=== PATIENT | female | born 1960 | race American Indian/Alaskan Native ===

== ENCOUNTER 2018-06-07 08:30 | Inpatient (IN) | payer MEDICARE, MEDICAID ==
[2018-06-07 08:34] VITALS: BMI 35.3
--- NOTE | 2018-06-07 09:04 | C.PDOC ---
History Of Present Illness 58 y/o female pt with hx of dementia and HTN presents to the ER c/o palpitations today. Pt is from senior care and is currently wearing a heart monitor for her fast heart rate for x2 weeks. Pt goes to dialysis M, W, F. PMD is Dr. Renan Heller. Pt denies chest pain, SOB, DM, sore throat, cough, and fever. Time Seen by Provider: 06/07/18 08:46 Chief Complaint (Nursing): Shortness Of Breath History Per: Patient History/Exam Limitations: no limitations Onset/Duration Of Symptoms: Days (x2 weeks) Current Symptoms Are (Timing): Still Present Past Medical History Reviewed: Historical Data, Nursing Documentation, Vital Signs Vital Signs: Last Vital Signs Temp 99.2 F 06/07/18 08:35 Pulse 90 06/07/18 08:35 Resp 26 H 06/07/18 08:35 BP 114/72 06/07/18 08:35 Pulse Ox 100 06/07/18 08:35 - Medical History PMH: Dementia, HTN, Hypercholesterolemia, Chronic Kidney Disease ("UNSPECIFIED KIDNEY FAILURE") Comment Only: Seizures ("UNSPECIFIED CONVULSIONS") Family History: States: No Known Family Hx - Social History Hx Alcohol Use: No Hx Substance Use: No - Immunization History Hx Tetanus Toxoid Vaccination: No Hx Influenza Vaccination: No Hx Pneumococcal Vaccination: No Review Of Systems Except As Marked, All Systems Reviewed And Found Negative. Constitutional: Negative for: Fever, Other (DM) ENT: Negative for: Throat Pain Cardiovascular: Positive for: Palpitations. Negative for: Chest Pain Respiratory: Negative for: Cough, Shortness of Breath Physical Exam - Physical Exam Appears: Non-toxic, No Acute Distress Skin: Warm, Dry Head: Normacephalic Chest: Symmetrical, No Deformity Cardiovascular: Rhythm Regular Respiratory: Normal Breath Sounds Extremity: Other (minimal venous stasis changes b/l) Pulses: Left Dorsalis Pedis: Normal, Right Dorsalis Pedis: Normal Neurological/Psych: Oriented x3, Normal Speech ED Course And Treatment - Laboratory Results Result Diagrams: 06/07/18 09:10 06/07/18 09:10 O2 Sat by Pulse Oximetry: 100 (RA) Pulse Ox Interpretation: Normal Medical Decision Making Medical Decision Making: Impression: palpitations Plans: -- EKG -- chem labs -- blood work -- CXR -- UA 10:39 Dr. Renan Heller agrees to admittance of pt. Reassess: Pt is resting comfortably. Patient has no risk factors for pulmonary emboli or DVT. Clinical presentation is not suggestive of aortic dissection. Pt will be admitted under Dr. Renan Heller. Disposition - Disposition Forms: [employer] (Urdu) - Scribe Statement The provider has reviewed the documentation as recorded by the Scribe Clayton Do Provider Attestation: All medical record entries made by the Scribe were at my direction and personally dictated by me. I have reviewed the chart and agree that the record accurately reflects my personal performance of the history, physical exam, medical decision making, and the department course for this patient. I have also personally directed, reviewed, and agree with the discharge instructions and disposition.
[2018-06-07 09:15] LABS: BASO # 0.2 K/uL (0.0-0.2); BASO % 1.1 % (0.0-2.0); EOS # 0.1 K/uL (0.0-0.7); EOS % 0.6 % (0.0-4.0); HEMOGLOBIN 10.8 g/dL (11.0-16.0); LYMPH # 0.7 K/uL (1.0-4.3); MEAN CELL VOLUME 101.7 fL (81.0-99.0); MEAN CORPUSCULAR HEMOGLOBIN 33.5 pg (27.0-31.0); MEAN PLATELET VOLUME 8.4 fL (7.2-11.7); MONO # 1.2 K/uL (0.0-0.8); MONO % 6.7 % (0.0-10.0); NEUT # 15.6 K/uL (1.8-7.0); NEUT % 87.6 % (50.0-75.0); PLATELET COUNT 285 K/uL (130-400); RBC 3.22 Mil/uL (3.80-5.20); RED CELL DISTRIBUTION WIDTH 16.2 % (11.5-14.5); WHITE BLOOD COUNT 17.8 K/uL (4.8-10.8)
[2018-06-07 09:27] LABS: ALBUMIN 3.9 g/dL (3.5-5.0); CALCIUM 9.7 mg/dl (8.6-10.4); INR 2.6; PROTHROMBIN TIME 28.8 SECONDS (9.7-12.2)
[2018-06-07] MEDS ORDERED: Azithromycin 500 MG in Sodium Chloride 0.9% 250 ML IVPB STA (10:07)
[2018-06-07 10:14] LABS: TROPONIN I 0.125 ng/mL (0.00-0.120)
[2018-06-07] MEDS ORDERED: cefTRIAXone 1 gm 1 GM/100 ML BAG IVPB ONE (10:27)
[2018-06-07] MEDS ORDERED: Azithromycin 500mg/250ML NS 500 MG/250 ML BAG IVPB ONE (10:27)
[2018-06-07 10:33] LABS: LYMPHOCYTE 4 % (20-40); MONOCYTE 1 % (0-10); NEUTROPHIL 95 % (50-75); TOTAL CELLS COUNTED 100
[2018-06-07 10:34] LABS: ANISOCYTOSIS SLIGHT; HYPOCHROMIC SLIGHT; PLATELET ESTIMATE NORMAL (NORMAL); POLYCHROMIC SLIGHT
[2018-06-07 10:35] LABS: SQUAMOUS EPITHIAL < 1 /hpf (0-5); URINE AMORPHOUS SEDIMENT OCC /ul (<OCC); URINE BACTERIA MANY (<OCC); URINE BILIRUBIN NEGATIVE (NEGATIVE); URINE BLOOD 1+ (NEGATIVE); URINE COLOR Amber (YELLOW); URINE GLUCOSE (UA) NORMAL (Normal); URINE LEUKOCYTE ESTERASE 2+ Leu/uL (Negative); URINE PROTEIN 3+ mg/dL (NEGATIVE)
[2018-06-07 10:36] LABS: URINE CLARITY SLHAZY (Clear)
[2018-06-07] MEDS ORDERED: Potassium Chloride 20 mEq/15 ml LIQ UD ONE (10:37)
[2018-06-07] MEDS ORDERED: Potassium Chloride 20 mEq/15 ml LIQ UD PO ONE (10:45)
--- NOTE | 2018-06-07 12:59 | RAD ---
Date of service: 06/07/2018 PROCEDURE: CHEST RADIOGRAPH, 1 VIEW HISTORY: chest pain COMPARISON: Comparison is made with 07/11/2011 FINDINGS: LUNGS: Diffuse hazy opacities in the lungs noted suggestive of pulmonary edema/severe congestion. PLEURA: Right pleural effusion is noted. CARDIOVASCULAR: The cardiac silhouette is enlarged. Small atherosclerotic calcifications seen in the aortic knob OSSEOUS STRUCTURES: No significant abnormalities. VISUALIZED UPPER ABDOMEN: Normal. OTHER FINDINGS: None. IMPRESSION: Cardiomegaly and diffuse hazy opacity in the lungs suspicious for pulmonary edema or severe congestion.
[2018-06-07] MEDS ORDERED: Dextrose 50% SYRINGE Inj (50 ml) IV PRN (16:20)
[2018-06-07] MEDS ORDERED: Glucagon Recombinant 1 mg Inj IM PRN (16:20)
[2018-06-07] MEDS: (Novolog) Insulin Aspart, Recombinant 100 u/ml 10 ml vial SC SCH ×2 (17:00→21:25)
[2018-06-07] MEDS: MethylPREDNISolone 40 mg Vial IVP SCH (21:24)
--- NOTE | 2018-06-07 21:40 | CP.PCM.HP ---
Past Patient History - Past Medical History & Family History Past Medical History?: Yes - Past Social History Smoking Status: Never Smoked - CARDIAC Hx Hypercholesterolemia: Yes Hx Hypertension: Yes - PULMONARY Hx Respiratory Disorders: No - NEUROLOGICAL Hx Dementia: Yes Hx Seizures: ("UNSPECIFIED CONVULSIONS") - HEENT Hx HEENT Problems: Yes Hx Cataracts: Yes - RENAL Hx Chronic Kidney Disease: Yes ("UNSPECIFIED KIDNEY FAILURE") - ENDOCRINE/METABOLIC Hx Endocrine Disorders: Yes Hx Diabetes Mellitus Type 2: Yes ("DM TYPE 2 WITHOUT COMPLICATIONS") - MUSCULOSKELETAL/RHEUMATOLOGICAL Hx Falls: No - GASTROINTESTINAL Hx Gastrointestinal Disorders: Yes Hx Gastroesophageal Reflux: Yes - PSYCHIATRIC Hx Substance Use: Yes - SURGICAL HISTORY Hx Surgeries: Yes Hx Vascular Access Device: Yes (AV FISTULAR LEFT ARM) - ANESTHESIA Hx Anesthesia: Yes Hx Anesthesia Reactions: No Meds Allergies/Adverse Reactions: Allergies Allergy/AdvReac Type Severity Reaction Status Date / Time No Known Allergies Allergy Verified 11/11/15 06:51 Physical Exam - Constitutional Appears: Well - Head Exam Head Exam: ATRAUMATIC, NORMAL INSPECTION, NORMOCEPHALIC - Eye Exam Eye Exam: EOMI, Normal appearance, PERRL Pupil Exam: NORMAL ACCOMODATION, PERRL - ENT Exam ENT Exam: Mucous Membranes Moist, Normal Exam - Neck Exam Neck exam: Positive for: Normal Inspection - Respiratory Exam Respiratory Exam: Decreased Breath Sounds - Cardiovascular Exam Cardiovascular Exam: REGULAR RHYTHM, +S1, +S2 - GI/Abdominal Exam GI & Abdominal Exam: Diminished Bowel Sounds, Soft - Rectal Exam Rectal Exam: Deferred Results - Vital Signs Recent Vital Signs: Last Vital Signs Temp 98.0 F 06/07/18 15:23 Pulse 79 06/07/18 15:23 Resp 20 06/07/18 15:23 BP 118/83 06/07/18 17:42 Pulse Ox 100 06/07/18 15:23 - Labs Result Diagrams: 06/07/18 09:10 06/07/18 09:10 Labs: Laboratory Results - last 24 hr 06/07/18 06/07/18 06/07/18 08:38 09:10 09:10 WBC 17.8 H RBC 3.22 L Hgb 10.8 L Hct 32.7 L MCV 101.7 H MCH 33.5 H MCHC 33.0 RDW 16.2 H Plt Count 285 MPV 8.4 Neut % (Auto) 87.6 H Lymph % (Auto) 4.0 L Walton % (Auto) 6.7 Eos % (Auto) 0.6 Baso % (Auto) 1.1 Neut # (Auto) 15.6 H Lymph # (Auto) 0.7 L Walton # (Auto) 1.2 H Eos # (Auto) 0.1 Baso # (Auto) 0.2 Neutrophils % (Manual) 95 H Lymphocytes % (Manual) 4 L Monocytes % (Manual) 1 Platelet Estimate Normal Polychromasia Slight Hypochromasia (manual) Slight Anisocytosis (manual) Slight PT 28.8 H INR 2.6 APTT 52 H Sodium Potassium Chloride Carbon Dioxide Anion Gap BUN Creatinine Est GFR ( Amer) Est GFR (Non-Af Amer) POC Glucose (mg/dL) 111 H Random Glucose Calcium Total Bilirubin AST ALT Alkaline Phosphatase Troponin I NT-Pro-B Natriuret Pep Total Protein Albumin Globulin Albumin/Globulin Ratio Urine Color Urine Clarity Urine pH Ur Specific Payne Urine Protein Urine Glucose (UA) Urine Ketones Urine Blood Urine Nitrate Urine Bilirubin Urine Urobilinogen Ur Leukocyte Esterase Urine WBC (Auto) Urine RBC (Auto) Ur Squamous Epith Cells Amorphous Sediment Urine Bacteria 06/07/18 06/07/18 06/07/18 09:10 10:20 16:52 WBC RBC Hgb Hct MCV MCH MCHC RDW Plt Count MPV Neut % (Auto) Lymph % (Auto) Walton % (Auto) Eos % (Auto) Baso % (Auto) Neut # (Auto) Lymph # (Auto) Walton # (Auto) Eos # (Auto) Baso # (Auto) Neutrophils % (Manual) Lymphocytes % (Manual) Monocytes % (Manual) Platelet Estimate Polychromasia Hypochromasia (manual) Anisocytosis (manual) PT INR APTT Sodium 140 Potassium 3.4 L Chloride 96 L Carbon Dioxide 32 H Anion Gap 15 BUN 37 H Creatinine 3.8 H Est GFR ( Amer) 15 Est GFR (Non-Af Amer) 12 POC Glucose (mg/dL) 108 Random Glucose 117 H Calcium 9.7 Total Bilirubin 2.6 H AST 23 ALT 13 Alkaline Phosphatase 110 Troponin I 0.1250 H* NT-Pro-B Natriuret Pep 18004 H Total Protein 7.9 Albumin 3.9 Globulin 4.0 H Albumin/Globulin Ratio 1.0 Urine Color [place] Urine Clarity [place] Urine pH 8.0 Ur Specific Payne 1.013 Urine Protein 3+ H Urine Glucose (UA) Normal Urine Ketones Negative Urine Blood 1+ H Urine Nitrate Negative Urine Bilirubin Negative Urine Urobilinogen 2.0 H Ur Leukocyte Esterase 2+ H Urine WBC (Auto) 17 H Urine RBC (Auto) 8 H Ur Squamous Epith Cells < 1 Amorphous Sediment Occ H Urine Bacteria Many H
[2018-06-08] MEDS: Albuterol-Ipratrop 3 mg / 0.5 (3 ml) UD INH SCH ×4 (01:25→19:53)
[2018-06-08] MEDS: MethylPREDNISolone 40 mg Vial IVP SCH ×3 (06:29→21:53)
[2018-06-08] MEDS: Pantoprazole 40 mg EC Tab PO SCH (09:23)
[2018-06-08] MEDS: (Novolog) Insulin Aspart, Recombinant 100 u/ml 10 ml vial SC SCH ×4 (09:24→21:51)
[2018-06-08] MEDS ORDERED: Potassium Chloride 20 mEq/15 ml LIQ UD PO ONE (10:16)
[2018-06-08] MEDS: Azithromycin 500 MG in Sodium Chloride 0.9% 250 ML IVPB SCH (10:40)
[2018-06-08] MEDS: cefTRIAXone IV 1 gm in Dextros 50 ML IVPB SCH (14:50)
--- NOTE | 2018-06-08 17:27 | CP.PCM.PN ---
Subjective - Date & Time of Evaluation Date of Evaluation: 06/08/18 Time of Evaluation: 10:30 - Subjective Subjective: clinically same Objective - Vital Signs/Intake and Output Vital Signs (last 24 hours): Temp Pulse Resp BP Pulse Ox 98.0 F 68 20 127/82 99 06/08/18 16:38 06/08/18 16:38 06/08/18 16:38 06/08/18 16:38 06/08/18 16:38 - Medications Medications: Current Medications Albuterol/Ipratropium (Duoneb 3 Mg/0.5 Mg (3 Ml) Ud) 3 ml INH RQ6 [facility] Last Admin: 06/08/18 13:47 Dose: Not Given Amiodarone HCl (Cordarone) 200 mg PO DAILY [facility] Last Admin: 06/08/18 09:22 Dose: 200 mg Apixaban (Eliquis) 2.5 mg PO BID [facility] Last Admin: 06/08/18 09:23 Dose: 2.5 mg Aspirin (Aspirin Chewable) 81 mg PO DAILY [facility] Last Admin: 06/08/18 09:23 Dose: 81 mg Dextrose (Dextrose 50% Inj) 0 ml IV STAT PRN; Protocol PRN Reason: Hypoglycemia Protocol Dextrose (Glutose 15) 0 gm PO ONCE PRN; Protocol PRN Reason: Hypoglycemia Protocol Glucagon (Glucagen Diagnostic Kit) 0 mg IM STAT PRN; Protocol PRN Reason: Hypoglycemia Protocol Azithromycin 500 mg/ Sodium (Chloride) 250 mls @ 250 mls/hr IVPB DAILY [facility] Last Admin: 06/08/18 10:40 Dose: 250 mls/hr Ceftriaxone Sodium (Rocephin Iv 1 Gm Duplex) 50 mls @ 100 mls/hr IVPB DAILY [facility]; Protocol Last Admin: 06/08/18 14:50 Dose: 100 mls/hr Dextrose (Dextrose 5% In Water 1000 Ml) 1,000 mls @ 0 mls/hr IV .Q0M PRN; Protocol PRN Reason: Hypoglycemia Protocol Insulin Aspart (Novolog) 0 unit SC ACHS [facility]; Protocol Last Admin: 06/08/18 17:22 Dose: Not Given Levetiracetam (Keppra) 250 mg PO BID [facility] Last Admin: 06/08/18 09:23 Dose: 250 mg Lisinopril (Zestril) 5 mg PO DAILY [facility] Last Admin: 06/08/18 09:23 Dose: 5 mg Methylprednisolone (Solu-Medrol) 40 mg IVP Q8 [facility] Last Admin: 06/08/18 14:50 Dose: 40 mg Metoprolol Tartrate (Lopressor) 25 mg PO BID [facility] Last Admin: 06/08/18 09:23 Dose: 25 mg Pantoprazole Sodium (Protonix Ec Tab) 40 mg PO DAILY [facility] Last Admin: 06/08/18 09:23 Dose: 40 mg Rosuvastatin Calcium (Crestor) 20 mg PO HS [facility] Last Admin: 06/07/18 21:24 Dose: 20 mg - Labs Labs: 06/07/18 09:10 06/07/18 09:10 PT 28.8 SECONDS (9.7-12.2) H 06/07/18 09:10 INR 2.6 06/07/18 09:10 APTT 52 SECONDS (21-34) H 06/07/18 09:10
--- NOTE | 2018-06-08 19:21 | CP.PCM.CON ---
History of Present Illness - History of Present Illness History of Present Illness: patient seen and examined consult dictated Hx esrd,[facility] resident admitted via er for chest pain palpitations to schedule dialysis in AM Obtained phone consent from sister await cardiology evaluation Past Patient History - Past Medical History & Family History Past Medical History?: Yes - Past Social History Smoking Status: Never Smoked - CARDIAC Hx Hypercholesterolemia: Yes Hx Hypertension: Yes - PULMONARY Hx Respiratory Disorders: No - NEUROLOGICAL Hx Dementia: Yes Hx Seizures: ("UNSPECIFIED CONVULSIONS") - HEENT Hx HEENT Problems: Yes Hx Cataracts: Yes - RENAL Hx Chronic Kidney Disease: Yes ("UNSPECIFIED KIDNEY FAILURE") - ENDOCRINE/METABOLIC Hx Endocrine Disorders: Yes Hx Diabetes Mellitus Type 2: Yes ("DM TYPE 2 WITHOUT COMPLICATIONS") - MUSCULOSKELETAL/RHEUMATOLOGICAL Hx Falls: No - GASTROINTESTINAL Hx Gastrointestinal Disorders: Yes Hx Gastroesophageal Reflux: Yes - PSYCHIATRIC Hx Substance Use: Yes - SURGICAL HISTORY Hx Surgeries: Yes Hx Vascular Access Device: Yes (AV FISTULAR LEFT ARM) - ANESTHESIA Hx Anesthesia: Yes Hx Anesthesia Reactions: No Meds Allergies/Adverse Reactions: Allergies Allergy/AdvReac Type Severity Reaction Status Date / Time No Known Allergies Allergy Verified 11/11/15 06:51 - Medications Medications: Current Medications Albuterol/Ipratropium (Duoneb 3 Mg/0.5 Mg (3 Ml) Ud) 3 ml INH RQ6 [facility] Last Admin: 06/08/18 13:47 Dose: Not Given Amiodarone HCl (Cordarone) 200 mg PO DAILY [facility] Last Admin: 06/08/18 09:22 Dose: 200 mg Apixaban (Eliquis) 2.5 mg PO BID [facility] Last Admin: 06/08/18 17:44 Dose: 2.5 mg Aspirin (Aspirin Chewable) 81 mg PO DAILY [facility] Last Admin: 06/08/18 09:23 Dose: 81 mg Dextrose (Dextrose 50% Inj) 0 ml IV STAT PRN; Protocol PRN Reason: Hypoglycemia Protocol Dextrose (Glutose 15) 0 gm PO ONCE PRN; Protocol PRN Reason: Hypoglycemia Protocol Glucagon (Glucagen Diagnostic Kit) 0 mg IM STAT PRN; Protocol PRN Reason: Hypoglycemia Protocol Azithromycin 500 mg/ Sodium (Chloride) 250 mls @ 250 mls/hr IVPB DAILY [facility] Last Admin: 06/08/18 10:40 Dose: 250 mls/hr Ceftriaxone Sodium (Rocephin Iv 1 Gm Duplex) 50 mls @ 100 mls/hr IVPB DAILY [facility]; Protocol Last Admin: 06/08/18 14:50 Dose: 100 mls/hr Dextrose (Dextrose 5% In Water 1000 Ml) 1,000 mls @ 0 mls/hr IV .Q0M PRN; Protocol PRN Reason: Hypoglycemia Protocol Insulin Aspart (Novolog) 0 unit SC ACHS [facility]; Protocol Last Admin: 06/08/18 17:22 Dose: Not Given Levetiracetam (Keppra) 250 mg PO BID [facility] Last Admin: 06/08/18 17:44 Dose: 250 mg Lisinopril (Zestril) 5 mg PO DAILY [facility] Last Admin: 06/08/18 09:23 Dose: 5 mg Methylprednisolone (Solu-Medrol) 40 mg IVP Q8 [facility] Last Admin: 06/08/18 14:50 Dose: 40 mg Metoprolol Tartrate (Lopressor) 25 mg PO BID [facility] Last Admin: 06/08/18 17:44 Dose: 25 mg Pantoprazole Sodium (Protonix Ec Tab) 40 mg PO DAILY [facility] Last Admin: 06/08/18 09:23 Dose: 40 mg Rosuvastatin Calcium (Crestor) 20 mg PO HS [facility] Last Admin: 06/07/18 21:24 Dose: 20 mg Results - Vital Signs Recent Vital Signs: Last Vital Signs Temp 98.0 F 06/08/18 16:38 Pulse 68 06/08/18 16:38 Resp 20 06/08/18 16:38 BP 127/82 06/08/18 17:44 Pulse Ox 99 06/08/18 16:38 - Labs Result Diagrams: 06/07/18 09:10 06/07/18 09:10 Labs: Laboratory Results - last 24 hr 06/07/18 06/08/18 06/08/18 21:25 06:26 11:52 POC Glucose (mg/dL) 105 125 H 161 H 06/08/18 17:07 POC Glucose (mg/dL) 142 H Assessment & Plan (1) ESRD (end stage renal disease) on dialysis Status: Acute (2) CHF (congestive heart failure) Status: Acute (3) Chest pain Status: Acute (4) Dementia Status: Acute (5) Seizure disorder Status: Acute
[2018-06-09] MEDS: Albuterol-Ipratrop 3 mg / 0.5 (3 ml) UD INH SCH ×4 (02:48→20:24)
--- NOTE | 2018-06-09 03:00 | CON ---
DATE: 06/08/2018 ATTENDING PHYSICIAN: Megan Heller HISTORY OF PRESENT ILLNESS: Ms. Campbell is a 58-year-old black lady who is being seen for management of dialysis dependent renal failure. Ms. Campbell has a history of hypertension on dialysis Saturday, Saturday, Saturday. She suffers from dementia and is presently in a alf. She apparently had a heart monitor placed on her approximately 2 weeks ago. She was brought to the emergency room because of chest pain and palpitations. On the , her sodium was 140, potassium 3.4, chloride 96, CO2 of 32, BUN 37, creatinine 3.8, calcium 9.7, total bilirubin 2.6, AST 23, ALT of 13 alk phos of 110, troponin 1.1250, ProBNP of 58,300, total protein 7.9, albumin 3.9, globulin 4, white count 17,800, hemoglobin 10.8, hematocrit 32.7, and platelet count 285,000. Chest x-ray showed cardiomegaly and diffuse hazy opacity in the lung suspicious for pulmonary edema or severe congestion. PAST HISTORY: Please see the above, also a history of seizures. She has been admitted to [facility] in the past. MEDICATIONS: Include albuterol, amiodarone, Eliquis, aspirin, insulin, Keppra, lisinopril, Lopressor, Protonix and Crestor. She also is on methylprednisolone in the hospital. FAMILY HISTORY: She does not remember. SOCIAL HISTORY: She denied using cigarettes, drugs or alcohol. REVIEW OF SYSTEMS: At present she denies headache, chest pain, shortness of breath, palpitations, abdominal pain, nausea or vomiting. She does not remember when she made urine last. PHYSICAL EXAM: GENERAL: She was awake and alert, in no acute distress, watching television. VITAL SIGNS: Her temperature was 98. Her pulse was 68. Her blood pressure was 127/82. She was wearing a heart monitor. NECK: There was no jugular venous distension at 80-90 degrees. CHEST: Her lungs were clear. HEART: The heart rhythm was regular. ABDOMEN: Soft and nontender. The was no definite hepatomegaly. EXTREMITIES: She moves all her extremities on command. An access was patent in her left arm. IMPRESSION: End-stage renal disease dialysis dependent, hypertensive nephrosclerosis, dementia, seizure disorder, hypertension. RECOMMENDATIONS: We will schedule hemodialysis in the a.m. Await further cardiology evaluation. Thank you for your kind referral. We will continue to follow with you. Sincerely, Eddie Johnson MD
[2018-06-09] MEDS: MethylPREDNISolone 40 mg Vial IVP SCH ×3 (05:44→21:19)
[2018-06-09] MEDS: (Novolog) Insulin Aspart, Recombinant 100 u/ml 10 ml vial SC SCH ×4 (08:26→21:42)
[2018-06-09] MEDS: Azithromycin 500 MG in Sodium Chloride 0.9% 250 ML IVPB SCH (10:16)
[2018-06-09] MEDS: Pantoprazole 40 mg EC Tab PO SCH (10:17)
[2018-06-09] MEDS: cefTRIAXone IV 1 gm in Dextros 50 ML IVPB SCH (11:34)
--- NOTE | 2018-06-09 12:46 | CP.PCM.PN ---
Subjective - Date & Time of Evaluation Date of Evaluation: 06/09/18 Time of Evaluation: 12:44 - Subjective Subjective: no more CPs CXR with CHF changes for dialysis now Will need adequate UF BP has been low Objective - Vital Signs/Intake and Output Vital Signs (last 24 hours): Temp Pulse Resp BP Pulse Ox 97.3 F L 68 18 102/72 95 06/09/18 07:00 06/09/18 07:00 06/09/18 07:00 06/09/18 10:17 06/09/18 07:00 - Medications Medications: Current Medications Albuterol/Ipratropium (Duoneb 3 Mg/0.5 Mg (3 Ml) Ud) 3 ml INH RQ6 [facility] Last Admin: 06/09/18 07:47 Dose: 3 ml Amiodarone HCl (Cordarone) 200 mg PO DAILY [facility] Last Admin: 06/09/18 10:17 Dose: 200 mg Apixaban (Eliquis) 2.5 mg PO BID [facility] Last Admin: 06/09/18 10:17 Dose: 2.5 mg Aspirin (Aspirin Chewable) 81 mg PO DAILY [facility] Last Admin: 06/09/18 10:17 Dose: 81 mg Dextrose (Dextrose 50% Inj) 0 ml IV STAT PRN; Protocol PRN Reason: Hypoglycemia Protocol Dextrose (Glutose 15) 0 gm PO ONCE PRN; Protocol PRN Reason: Hypoglycemia Protocol Glucagon (Glucagen Diagnostic Kit) 0 mg IM STAT PRN; Protocol PRN Reason: Hypoglycemia Protocol Azithromycin 500 mg/ Sodium (Chloride) 250 mls @ 250 mls/hr IVPB DAILY [facility] Last Admin: 06/09/18 10:16 Dose: 250 mls/hr Ceftriaxone Sodium (Rocephin Iv 1 Gm Duplex) 50 mls @ 100 mls/hr IVPB DAILY [facility]; Protocol Last Admin: 06/09/18 11:34 Dose: 100 mls/hr Dextrose (Dextrose 5% In Water 1000 Ml) 1,000 mls @ 0 mls/hr IV .Q0M PRN; Protocol PRN Reason: Hypoglycemia Protocol Insulin Aspart (Novolog) 0 unit SC ACHS [facility]; Protocol Last Admin: 06/09/18 12:17 Dose: 1 unit Levetiracetam (Keppra) 250 mg PO BID [facility] Last Admin: 06/09/18 10:17 Dose: 250 mg Lisinopril (Zestril) 5 mg PO DAILY [facility] Last Admin: 06/09/18 10:17 Dose: 5 mg Methylprednisolone (Solu-Medrol) 40 mg IVP Q8 [facility] Last Admin: 06/09/18 05:44 Dose: 40 mg Metoprolol Tartrate (Lopressor) 25 mg PO BID [facility] Last Admin: 06/09/18 10:17 Dose: 25 mg Pantoprazole Sodium (Protonix Ec Tab) 40 mg PO DAILY [facility] Last Admin: 06/09/18 10:17 Dose: 40 mg Rosuvastatin Calcium (Crestor) 20 mg PO HS [facility] Last Admin: 06/08/18 21:50 Dose: 20 mg - Labs Labs: 06/07/18 09:10 06/07/18 09:10 PT 28.8 SECONDS (9.7-12.2) H 06/07/18 09:10 INR 2.6 06/07/18 09:10 APTT 52 SECONDS (21-34) H 06/07/18 09:10 - Constitutional Appears: No Acute Distress, Confused, Chronically Ill - Head Exam Head Exam: ATRAUMATIC, NORMAL INSPECTION - Eye Exam Eye Exam: EOMI, Normal appearance - Neck Exam Neck Exam: Normal Inspection. absent: Tenderness - Respiratory Exam Respiratory Exam: Clear to Ausculation Bilateral, NORMAL BREATHING PATTERN - Cardiovascular Exam Cardiovascular Exam: REGULAR RHYTHM, +S1 - GI/Abdominal Exam GI & Abdominal Exam: Soft. absent: Tenderness - Extremities Exam Extremities Exam: Normal Inspection. absent: Tenderness - Neurological Exam Neurological Exam: Awake, CN II-XII Intact - Skin Skin Exam: Dry, Warm Assessment and Plan (1) Type 2 diabetes mellitus with diabetic nephropathy Status: Acute (2) CHF (congestive heart failure) Status: Acute (3) Dementia Status: Acute (4) ESRD (end stage renal disease) on dialysis Status: Acute (5) Seizure disorder Status: Acute - Assessment and Plan (Free Text) Plan: dialysis now with adequate UF hold DEVIN I as BP low monitor CPs follow up labs
--- NOTE | 2018-06-09 17:04 | CARD ---
APPROVED REPORT Date of service: 06/07/2018 EKG Measurement Heart [id number] <Conclusion> Normal sinus rhythm Possible Left atrial enlargement Right bundle branch block Abnormal ECG
[2018-06-09 17:30] VITALS: RESP 20
--- NOTE | 2018-06-09 19:09 | CP.PCM.PN ---
Subjective - Date & Time of Evaluation Date of Evaluation: 06/09/18 Time of Evaluation: 11:15 - Subjective Subjective: clinically same Objective - Vital Signs/Intake and Output Vital Signs (last 24 hours): Temp Pulse Resp BP Pulse Ox 98.1 F 79 20 108/73 95 06/09/18 18:23 06/09/18 18:55 06/09/18 18:23 06/09/18 18:23 06/09/18 18:23 - Medications Medications: Current Medications Albuterol/Ipratropium (Duoneb 3 Mg/0.5 Mg (3 Ml) Ud) 3 ml INH RQ6 [facility] Last Admin: 06/09/18 13:44 Dose: 3 ml Amiodarone HCl (Cordarone) 200 mg PO DAILY [facility] Last Admin: 06/09/18 10:17 Dose: 200 mg Apixaban (Eliquis) 2.5 mg PO BID [facility] Last Admin: 06/09/18 19:07 Dose: 2.5 mg Aspirin (Aspirin Chewable) 81 mg PO DAILY [facility] Last Admin: 06/09/18 10:17 Dose: 81 mg Dextrose (Dextrose 50% Inj) 0 ml IV STAT PRN; Protocol PRN Reason: Hypoglycemia Protocol Dextrose (Glutose 15) 0 gm PO ONCE PRN; Protocol PRN Reason: Hypoglycemia Protocol Glucagon (Glucagen Diagnostic Kit) 0 mg IM STAT PRN; Protocol PRN Reason: Hypoglycemia Protocol Azithromycin 500 mg/ Sodium (Chloride) 250 mls @ 250 mls/hr IVPB DAILY [facility] Last Admin: 06/09/18 10:16 Dose: 250 mls/hr Ceftriaxone Sodium (Rocephin Iv 1 Gm Duplex) 50 mls @ 100 mls/hr IVPB DAILY [facility]; Protocol Last Admin: 06/09/18 11:34 Dose: 100 mls/hr Dextrose (Dextrose 5% In Water 1000 Ml) 1,000 mls @ 0 mls/hr IV .Q0M PRN; Protocol PRN Reason: Hypoglycemia Protocol Insulin Aspart (Novolog) 0 unit SC ACHS [facility]; Protocol Last Admin: 06/09/18 12:17 Dose: 1 unit Levetiracetam (Keppra) 250 mg PO BID [facility] Last Admin: 06/09/18 19:07 Dose: 250 mg Methylprednisolone (Solu-Medrol) 40 mg IVP Q8 [facility] Last Admin: 06/09/18 16:17 Dose: Not Given Metoprolol Tartrate (Lopressor) 25 mg PO BID [facility] Last Admin: 06/09/18 10:17 Dose: 25 mg Pantoprazole Sodium (Protonix Ec Tab) 40 mg PO DAILY [facility] Last Admin: 06/09/18 10:17 Dose: 40 mg Rosuvastatin Calcium (Crestor) 20 mg PO HS [facility] Last Admin: 06/08/18 21:50 Dose: 20 mg - Labs Labs: 06/07/18 09:10 06/07/18 09:10 PT 28.8 SECONDS (9.7-12.2) H 06/07/18 09:10 INR 2.6 06/07/18 09:10 APTT 52 SECONDS (21-34) H 06/07/18 09:10 - Constitutional Appears: Well - Head Exam Head Exam: ATRAUMATIC, NORMAL INSPECTION, NORMOCEPHALIC - Eye Exam Eye Exam: EOMI, Normal appearance, PERRL Pupil Exam: NORMAL ACCOMODATION, PERRL - ENT Exam ENT Exam: Mucous Membranes Moist, Normal Exam - Neck Exam Neck Exam: Full ROM, Normal Inspection. absent: Lymphadenopathy - Respiratory Exam Respiratory Exam: Decreased Breath Sounds - Cardiovascular Exam Cardiovascular Exam: REGULAR RHYTHM, +S1, +S2 - GI/Abdominal Exam GI & Abdominal Exam: Soft, Diminished Bowel Sounds - Rectal Exam Rectal Exam: Deferred
[2018-06-10] MEDS: Albuterol-Ipratrop 3 mg / 0.5 (3 ml) UD INH SCH ×4 (02:00→20:41)
[2018-06-10] MEDS: MethylPREDNISolone 40 mg Vial IVP SCH ×3 (06:15→21:37)
[2018-06-10] MEDS: (Novolog) Insulin Aspart, Recombinant 100 u/ml 10 ml vial SC SCH ×4 (07:50→22:54)
[2018-06-10] MEDS: cefTRIAXone IV 1 gm in Dextros 50 ML IVPB SCH (09:41)
[2018-06-10] MEDS: Pantoprazole 40 mg EC Tab PO SCH (09:42)
--- NOTE | 2018-06-10 09:51 | CP.PCM.PN ---
Subjective - Date & Time of Evaluation Date of Evaluation: 06/10/18 Time of Evaluation: 09:50 - Subjective Subjective: seen and examined no dyspnea cp dizziness palpitations nausea vomiting son at bedside, discussed care with him Objective - Vital Signs/Intake and Output Vital Signs (last 24 hours): Temp Pulse Resp BP Pulse Ox 97.8 F 72 20 105/69 96 06/10/18 07:00 06/10/18 07:02 06/10/18 07:00 06/10/18 09:43 06/10/18 07:00 Intake and Output: 06/10/18 06/10/18 06:59 18:59 Intake Total 320 Balance 320 - Medications Medications: Current Medications Albuterol/Ipratropium (Duoneb 3 Mg/0.5 Mg (3 Ml) Ud) 3 ml INH RQ6 [facility] Last Admin: 06/10/18 09:27 Dose: 3 ml Amiodarone HCl (Cordarone) 200 mg PO DAILY [facility] Last Admin: 06/10/18 09:43 Dose: 200 mg Apixaban (Eliquis) 2.5 mg PO BID [facility] Last Admin: 06/10/18 09:41 Dose: 2.5 mg Aspirin (Aspirin Chewable) 81 mg PO DAILY [facility] Last Admin: 06/10/18 09:41 Dose: 81 mg Dextrose (Dextrose 50% Inj) 0 ml IV STAT PRN; Protocol PRN Reason: Hypoglycemia Protocol Dextrose (Glutose 15) 0 gm PO ONCE PRN; Protocol PRN Reason: Hypoglycemia Protocol Glucagon (Glucagen Diagnostic Kit) 0 mg IM STAT PRN; Protocol PRN Reason: Hypoglycemia Protocol Azithromycin 500 mg/ Sodium (Chloride) 250 mls @ 250 mls/hr IVPB DAILY [facility] Last Admin: 06/09/18 10:16 Dose: 250 mls/hr Ceftriaxone Sodium (Rocephin Iv 1 Gm Duplex) 50 mls @ 100 mls/hr IVPB DAILY [facility]; Protocol Last Admin: 06/10/18 09:41 Dose: 100 mls/hr Dextrose (Dextrose 5% In Water 1000 Ml) 1,000 mls @ 0 mls/hr IV .Q0M PRN; Protocol PRN Reason: Hypoglycemia Protocol Insulin Aspart (Novolog) 0 unit SC ACHS [facility]; Protocol Last Admin: 06/10/18 07:50 Dose: Not Given Levetiracetam (Keppra) 250 mg PO BID [facility] Last Admin: 06/10/18 09:41 Dose: 250 mg Methylprednisolone (Solu-Medrol) 40 mg IVP Q8 [facility] Last Admin: 06/10/18 06:15 Dose: 40 mg Metoprolol Tartrate (Lopressor) 25 mg PO BID [facility] Last Admin: 06/10/18 09:43 Dose: 25 mg Pantoprazole Sodium (Protonix Ec Tab) 40 mg PO DAILY [facility] Last Admin: 06/10/18 09:42 Dose: 40 mg Rosuvastatin Calcium (Crestor) 20 mg PO HS [facility] Last Admin: 06/09/18 21:19 Dose: 20 mg - Labs Labs: 06/07/18 09:10 06/07/18 09:10 PT 28.8 SECONDS (9.7-12.2) H 06/07/18 09:10 INR 2.6 06/07/18 09:10 APTT 52 SECONDS (21-34) H 06/07/18 09:10 - Constitutional Appears: No Acute Distress, Chronically Ill - Head Exam Head Exam: NORMAL INSPECTION, NORMOCEPHALIC - Eye Exam Eye Exam: Normal appearance, PERRL - ENT Exam ENT Exam: Mucous Membranes Moist, Normal Exam - Neck Exam Neck Exam: Full ROM, Normal Inspection - Respiratory Exam Respiratory Exam: Decreased Breath Sounds, Clear to Ausculation Bilateral - Cardiovascular Exam Cardiovascular Exam: REGULAR RHYTHM, RRR - GI/Abdominal Exam GI & Abdominal Exam: Distended, Soft - Extremities Exam Extremities Exam: Full ROM, Normal Inspection - Neurological Exam Neurological Exam: Alert, Awake - Psychiatric Exam Psychiatric exam: Normal Affect, Normal Mood - Skin Skin Exam: Dry, Intact Assessment and Plan (1) CHF (congestive heart failure) Status: Acute (2) Chest pain Status: Acute (3) Dementia Status: Acute (4) ESRD (end stage renal disease) on dialysis Status: Acute (5) Type 2 diabetes mellitus with diabetic nephropathy Status: Acute - Assessment and Plan (Free Text) Assessment: maintain hd adequate uf as tolerated labs today
[2018-06-10] MEDS: Azithromycin 500 MG in Sodium Chloride 0.9% 250 ML IVPB SCH (10:20)
--- NOTE | 2018-06-10 12:10 | CP.PCM.CON ---
History of Present Illness - History of Present Illness History of Present Illness: 58 y/o female pt with hx of dementia and HTN presents to the ER c/o palpitations on saturday but son and patient report feeling better today. She has had CVA/brain aneurysm 7 years ago and has been in a care home since. She ambulates with assistance and walker. Of note she had a recent admission to [facility] for AFIB and CHF on 05/02/2018 DELIA guided cardioversion of AFIB on 05/04/2018 started on eliquis CATH and PCI of LAD 05/08/18 Cath and RCA stent 05/09/18 She additionally was documented to have severe pulm HTN and mod MR Life vest was placed with recc to re-eval LVEF in 90 days (Aug 08 2018) Currently she feels fine no cp or SOB no volume overload Review of Systems - Review of Systems All systems: reviewed and no additional remarkable complaints except (except that in HPI) Past Patient History - Past Medical History & Family History Past Medical History?: Yes - Past Social History Smoking Status: Never Smoked - CARDIAC Hx Hypercholesterolemia: Yes Hx Hypertension: Yes - PULMONARY Hx Respiratory Disorders: No - NEUROLOGICAL Hx Dementia: Yes Hx Seizures: ("UNSPECIFIED CONVULSIONS") - HEENT Hx HEENT Problems: Yes Hx Cataracts: Yes - RENAL Hx Chronic Kidney Disease: Yes ("UNSPECIFIED KIDNEY FAILURE") - ENDOCRINE/METABOLIC Hx Endocrine Disorders: Yes Hx Diabetes Mellitus Type 2: Yes ("DM TYPE 2 WITHOUT COMPLICATIONS") - MUSCULOSKELETAL/RHEUMATOLOGICAL Hx Falls: No - GASTROINTESTINAL Hx Gastrointestinal Disorders: Yes Hx Gastroesophageal Reflux: Yes - PSYCHIATRIC Hx Substance Use: Yes - SURGICAL HISTORY Hx Surgeries: Yes Hx Vascular Access Device: Yes (AV FISTULAR LEFT ARM) - ANESTHESIA Hx Anesthesia: Yes Hx Anesthesia Reactions: No Meds Allergies/Adverse Reactions: Allergies Allergy/AdvReac Type Severity Reaction Status Date / Time No Known Allergies Allergy Verified 11/11/15 06:51 - Medications Medications: Current Medications Albuterol/Ipratropium (Duoneb 3 Mg/0.5 Mg (3 Ml) Ud) 3 ml INH RQ6 [facility] Last Admin: 06/10/18 09:27 Dose: 3 ml Amiodarone HCl (Cordarone) 200 mg PO DAILY [facility] Last Admin: 06/10/18 09:43 Dose: 200 mg Apixaban (Eliquis) 2.5 mg PO BID [facility] Last Admin: 06/10/18 09:41 Dose: 2.5 mg Aspirin (Aspirin Chewable) 81 mg PO DAILY [facility] Last Admin: 06/10/18 09:41 Dose: 81 mg Dextrose (Dextrose 50% Inj) 0 ml IV STAT PRN; Protocol PRN Reason: Hypoglycemia Protocol Dextrose (Glutose 15) 0 gm PO ONCE PRN; Protocol PRN Reason: Hypoglycemia Protocol Glucagon (Glucagen Diagnostic Kit) 0 mg IM STAT PRN; Protocol PRN Reason: Hypoglycemia Protocol Azithromycin 500 mg/ Sodium (Chloride) 250 mls @ 250 mls/hr IVPB DAILY [facility] Last Admin: 06/10/18 10:20 Dose: 250 mls/hr Ceftriaxone Sodium (Rocephin Iv 1 Gm Duplex) 50 mls @ 100 mls/hr IVPB DAILY [facility]; Protocol Last Admin: 06/10/18 09:41 Dose: 100 mls/hr Dextrose (Dextrose 5% In Water 1000 Ml) 1,000 mls @ 0 mls/hr IV .Q0M PRN; Protocol PRN Reason: Hypoglycemia Protocol Insulin Aspart (Novolog) 0 unit SC ACHS [facility]; Protocol Last Admin: 06/10/18 07:50 Dose: Not Given Levetiracetam (Keppra) 250 mg PO BID [facility] Last Admin: 06/10/18 09:41 Dose: 250 mg Methylprednisolone (Solu-Medrol) 40 mg IVP Q8 [facility] Last Admin: 06/10/18 06:15 Dose: 40 mg Metoprolol Tartrate (Lopressor) 25 mg PO BID [facility] Last Admin: 06/10/18 09:43 Dose: 25 mg Pantoprazole Sodium (Protonix Ec Tab) 40 mg PO DAILY [facility] Last Admin: 06/10/18 09:42 Dose: 40 mg Rosuvastatin Calcium (Crestor) 20 mg PO HS [facility] Last Admin: 06/09/18 21:19 Dose: 20 mg Physical Exam - Constitutional Appears: Chronically Ill - Head Exam Head Exam: ATRAUMATIC, NORMAL INSPECTION, NORMOCEPHALIC - Eye Exam Eye Exam: EOMI, Normal appearance. absent: Scleral icterus - ENT Exam ENT Exam: Mucous Membranes Moist, Normal Oropharynx - Neck Exam Neck exam: Positive for: Full Rom, Normal Inspection. Negative for: Thyromegaly - Respiratory Exam Respiratory Exam: Clear to Auscultation Bilateral, NORMAL BREATHING PATTERN. absent: Rales, Rhonchi - Cardiovascular Exam Cardiovascular Exam: REGULAR RHYTHM, +S1, +S2, Systolic Murmur - GI/Abdominal Exam GI & Abdominal Exam: Normal Bowel Sounds, Soft. absent: Tenderness - Extremities Exam Extremities exam: Positive for: pedal pulses present. Negative for: calf tenderness, pedal edema - Neurological Exam Neurological exam: Alert, Oriented x3 - Skin Skin Exam: Normal Color, Warm Results - Vital Signs Recent Vital Signs: Last Vital Signs Temp 97.8 F 06/10/18 07:00 Pulse 72 06/10/18 07:02 Resp 20 06/10/18 07:00 BP 105/69 06/10/18 09:43 Pulse Ox 96 06/10/18 07:00 - Labs Result Diagrams: 06/07/18 09:10 06/07/18 09:10 Labs: Laboratory Results - last 24 hr 06/09/18 06/09/18 06/10/18 18:12 21:34 06:23 POC Glucose (mg/dL) 135 H 157 H 134 H 06/10/18 11:18 POC Glucose (mg/dL) 229 H - EKG Data EKG Interpreted by: Myself (NSR, LAE, LVH, RBBB) Assessment & Plan - Assessment and Plan (Free Text) Assessment: Reports palpitation on saturday at care home Severe LV systolic dysfunction with severe triple vessel CAD: s/p LAD and RCA drug eluting stents 04/2018 AFIB: s/p DELIA cardioversion 04/2018: EKG: NSR, RBBB, LAE, no acute ischemic changes 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 Optimize CHF therapy with change of metoprolol to coreg and add DEVIN-I cont amiodarone to maintain NSR cont HD to maintain volume normal status
--- NOTE | 2018-06-10 14:11 | CP.PCM.PN ---
Subjective - Date & Time of Evaluation Date of Evaluation: 06/10/18 Time of Evaluation: 11:00 - Subjective Subjective: clinically same Objective - Vital Signs/Intake and Output Vital Signs (last 24 hours): Temp Pulse Resp BP Pulse Ox 97.8 F 72 20 105/69 96 06/10/18 07:00 06/10/18 07:02 06/10/18 07:00 06/10/18 09:43 06/10/18 07:00 Intake and Output: 06/10/18 06/10/18 06:59 18:59 Intake Total 320 Balance 320 - Medications Medications: Current Medications Albuterol/Ipratropium (Duoneb 3 Mg/0.5 Mg (3 Ml) Ud) 3 ml INH RQ6 [facility] Last Admin: 06/10/18 13:44 Dose: 3 ml Amiodarone HCl (Cordarone) 200 mg PO DAILY [facility] Last Admin: 06/10/18 09:43 Dose: 200 mg Apixaban (Eliquis) 2.5 mg PO BID [facility] Last Admin: 06/10/18 09:41 Dose: 2.5 mg Aspirin (Aspirin Chewable) 81 mg PO DAILY [facility] Last Admin: 06/10/18 09:41 Dose: 81 mg Dextrose (Dextrose 50% Inj) 0 ml IV STAT PRN; Protocol PRN Reason: Hypoglycemia Protocol Dextrose (Glutose 15) 0 gm PO ONCE PRN; Protocol PRN Reason: Hypoglycemia Protocol Glucagon (Glucagen Diagnostic Kit) 0 mg IM STAT PRN; Protocol PRN Reason: Hypoglycemia Protocol Azithromycin 500 mg/ Sodium (Chloride) 250 mls @ 250 mls/hr IVPB DAILY [facility] Last Admin: 06/10/18 10:20 Dose: 250 mls/hr Ceftriaxone Sodium (Rocephin Iv 1 Gm Duplex) 50 mls @ 100 mls/hr IVPB DAILY [facility]; Protocol Last Admin: 06/10/18 09:41 Dose: 100 mls/hr Dextrose (Dextrose 5% In Water 1000 Ml) 1,000 mls @ 0 mls/hr IV .Q0M PRN; Protocol PRN Reason: Hypoglycemia Protocol Insulin Aspart (Novolog) 0 unit SC ACHS [facility]; Protocol Last Admin: 06/10/18 12:55 Dose: 2 unit Levetiracetam (Keppra) 250 mg PO BID [facility] Last Admin: 12/18/18 09:41 Dose: 250 mg Methylprednisolone (Solu-Medrol) 40 mg IVP Q8 [facility] Last Admin: 06/10/18 06:15 Dose: 40 mg Metoprolol Tartrate (Lopressor) 25 mg PO BID [facility] Last Admin: 06/10/18 09:43 Dose: 25 mg Pantoprazole Sodium (Protonix Ec Tab) 40 mg PO DAILY [facility] Last Admin: 06/10/18 09:42 Dose: 40 mg Rosuvastatin Calcium (Crestor) 20 mg PO HS [facility] Last Admin: 06/09/18 21:19 Dose: 20 mg - Labs Labs: 06/07/18 09:10 06/07/18 09:10 PT 28.8 SECONDS (9.7-12.2) H 06/07/18 09:10 INR 2.6 06/07/18 09:10 APTT 52 SECONDS (21-34) H 06/07/18 09:10 - Constitutional Appears: Well - Head Exam Head Exam: ATRAUMATIC, NORMAL INSPECTION, NORMOCEPHALIC - Eye Exam Eye Exam: EOMI, Normal appearance, PERRL Pupil Exam: NORMAL ACCOMODATION, PERRL - ENT Exam ENT Exam: Mucous Membranes Moist, Normal Exam - Neck Exam Neck Exam: Full ROM, Normal Inspection. absent: Lymphadenopathy - Respiratory Exam Respiratory Exam: Decreased Breath Sounds - Cardiovascular Exam Cardiovascular Exam: REGULAR RHYTHM, +S1, +S2 - GI/Abdominal Exam GI & Abdominal Exam: Soft, Diminished Bowel Sounds - Rectal Exam Rectal Exam: Deferred
--- NOTE | 2018-06-10 17:17 | RAD ---
HISTORY: f/u COMPARISON: Chest x-ray performed 06/07/18 TECHNIQUE: Chest, one view. FINDINGS: Numerous external wires, leads, and devices obscure evaluation of the underlying parenchyma. LUNGS: Moderate to severe interstitial prominence may reflect edema or infection. Suspect small left pleural effusion. No definite pneumothorax. CARDIOVASCULAR: Enlarged cardiomediastinal silhouette. OSSEOUS STRUCTURES: No acute osseous abnormality identified. VISUALIZED UPPER ABDOMEN: Unremarkable. OTHER FINDINGS: None. IMPRESSION: Limited study. Enlarged cardiomediastinal silhouette. Moderate to severe interstitial prominence may reflect edema or infection. Suspect small left pleural effusion.
[2018-06-11] MEDS: Albuterol-Ipratrop 3 mg / 0.5 (3 ml) UD INH SCH ×3 (02:00→13:25)
[2018-06-11] MEDS: MethylPREDNISolone 40 mg Vial IVP SCH (05:41)
[2018-06-11 09:42] LABS: BASO # 0.1 K/uL (0.0-0.2); BASO % 0.4 % (0.0-2.0); HEMOGLOBIN 9.5 g/dL (11.0-16.0); LYMPH # 0.4 K/uL (1.0-4.3); LYMPH % 1.8 % (20.0-40.0); MEAN CELL VOLUME 102.7 fL (81.0-99.0); MEAN CORPUSCULAR HEMOGLOBIN 32.4 pg (27.0-31.0); MEAN CORPUSCULAR HGB CONC 31.6 g/dL (33.0-37.0); MEAN PLATELET VOLUME 8.6 fL (7.2-11.7); MONO # 0.3 K/uL (0.0-0.8); MONO % 1.4 % (0.0-10.0); NEUT # 19.9 K/uL (1.8-7.0); NEUT % 96.4 % (50.0-75.0); RBC 2.91 Mil/uL (3.80-5.20); WHITE BLOOD COUNT 20.6 K/uL (4.8-10.8)
[2018-06-11 09:49] LABS: PLATELET COUNT 392 K/uL (130-400)
[2018-06-11 10:07] LABS: ALB/GLOB RATIO 0.9 (1.0-2.1); ALBUMIN 3.6 g/dL (3.5-5.0); CALCIUM 8.6 mg/dl (8.6-10.4)
[2018-06-11] MEDS: (Novolog) Insulin Aspart, Recombinant 100 u/ml 10 ml vial SC SCH ×3 (11:02→18:25)
[2018-06-11] MEDS: cefTRIAXone IV 1 gm in Dextros 50 ML IVPB SCH ×2 (11:03→13:13)
[2018-06-11] MEDS: Pantoprazole 40 mg EC Tab PO SCH ×2 (11:03→13:12)
[2018-06-11] MEDS: Azithromycin 500 MG in Sodium Chloride 0.9% 250 ML IVPB SCH ×2 (11:04→13:16)
[2018-06-11 11:54] LABS: LYMPHOCYTE 1 % (20-40); MONOCYTE 1 % (0-10); MYELOCYTE 1 % (0-0); NEUTROPHIL 97 % (50-75); PLATELET ESTIMATE NORMAL (NORMAL); TOTAL CELLS COUNTED 100
[2018-06-11 11:55] LABS: ANISOCYTOSIS SLIGHT; BURR CELLS SLIGHT; HYPOCHROMIC SLIGHT; POIKILOCYTOSIS SLIGHT
[2018-06-11 11:56] LABS: LARGE PLATELETS PRESENT
--- NOTE | 2018-06-11 13:33 | CP.PCM.PN ---
Subjective - Date & Time of Evaluation Date of Evaluation: 06/11/18 Time of Evaluation: 13:31 - Subjective Subjective: no chest pain no sob no palpitations no fever no chills no diarrhea no nausea decreased urine production no rash no arthralgias Objective - Vital Signs/Intake and Output Vital Signs (last 24 hours): Temp Pulse Resp BP Pulse Ox 97.6 F 80 20 119/71 100 06/11/18 12:30 06/11/18 12:30 06/11/18 12:30 06/11/18 12:30 06/11/18 12:30 Intake and Output: 06/11/18 06/11/18 06:59 18:59 Intake Total 240 Balance 240 - Medications Medications: Current Medications Albuterol/Ipratropium (Duoneb 3 Mg/0.5 Mg (3 Ml) Ud) 3 ml INH RQ6 [facility] Last Admin: 06/11/18 07:25 Dose: 3 ml Amiodarone HCl (Cordarone) 200 mg PO DAILY [facility] Last Admin: 06/11/18 13:12 Dose: 200 mg Apixaban (Eliquis) 2.5 mg PO BID [facility] Last Admin: 06/11/18 11:01 Dose: Not Given Aspirin (Aspirin Chewable) 81 mg PO DAILY [facility] Last Admin: 06/11/18 13:12 Dose: 81 mg Dextrose (Dextrose 50% Inj) 0 ml IV STAT PRN; Protocol PRN Reason: Hypoglycemia Protocol Dextrose (Glutose 15) 0 gm PO ONCE PRN; Protocol PRN Reason: Hypoglycemia Protocol Glucagon (Glucagen Diagnostic Kit) 0 mg IM STAT PRN; Protocol PRN Reason: Hypoglycemia Protocol Azithromycin 500 mg/ Sodium (Chloride) 250 mls @ 250 mls/hr IVPB DAILY [facility] Last Admin: 06/11/18 13:16 Dose: 250 mls/hr Ceftriaxone Sodium (Rocephin Iv 1 Gm Duplex) 50 mls @ 100 mls/hr IVPB DAILY [facility]; Protocol Last Admin: 06/11/18 13:13 Dose: 100 mls/hr Insulin Aspart (Novolog) 0 unit SC ACHS [facility]; Protocol Last Admin: 06/11/18 12:54 Dose: Not Given Levetiracetam (Keppra) 250 mg PO BID [facility] Last Admin: 06/11/18 11:01 Dose: Not Given Methylprednisolone (Solu-Medrol) 20 mg IVP Q12 [facility] Metoprolol Tartrate (Lopressor) 25 mg PO BID [facility] Last Admin: 06/11/18 11:01 Dose: Not Given Pantoprazole Sodium (Protonix Ec Tab) 40 mg PO DAILY [facility] Last Admin: 06/11/18 13:12 Dose: 40 mg Rosuvastatin Calcium (Crestor) 20 mg PO HS [facility] Last Admin: 06/10/18 21:37 Dose: 20 mg - Labs Labs: 06/11/18 09:38 06/11/18 09:38 PT 28.8 SECONDS (9.7-12.2) H 06/07/18 09:10 INR 2.6 06/07/18 09:10 APTT 52 SECONDS (21-34) H 06/07/18 09:10 - Constitutional Appears: Non-toxic, Confused - Eye Exam Eye Exam: EOMI, Normal appearance - ENT Exam ENT Exam: Mucous Membranes Moist - Neck Exam Neck Exam: Full ROM. absent: Lymphadenopathy - Respiratory Exam Respiratory Exam: Clear to Ausculation Bilateral, NORMAL BREATHING PATTERN - Cardiovascular Exam Cardiovascular Exam: REGULAR RHYTHM Additional comments: wearing life vest - GI/Abdominal Exam GI & Abdominal Exam: Soft. absent: Tenderness - Extremities Exam Extremities Exam: Full ROM. absent: Pedal Edema - Neurological Exam Neurological Exam: Alert, Oriented x3 Assessment and Plan - Assessment and Plan (Free Text) Assessment: dialysis patient with cardiomyopathy appears euvolemic at present HD today
[2018-06-11 16:40] VITALS: TEMP 98.6; O2SAT 99
--- NOTE | 2018-06-11 16:53 | CP.PCM.PN ---
Subjective - Date & Time of Evaluation Date of Evaluation: 06/11/18 Time of Evaluation: 16:53 - Subjective Subjective: Events reviewed Objective - Vital Signs/Intake and Output Vital Signs (last 24 hours): Temp Pulse Resp BP Pulse Ox 98.6 F 85 20 114/77 99 06/11/18 15:00 06/11/18 15:00 06/11/18 15:00 06/11/18 15:00 06/11/18 15:00 Intake and Output: 06/11/18 06/11/18 06:59 18:59 Intake Total 240 Balance 240 - Medications Medications: Current Medications Albuterol/Ipratropium (Duoneb 3 Mg/0.5 Mg (3 Ml) Ud) 3 ml INH RQ6 [facility] Last Admin: 06/11/18 13:25 Dose: 3 ml Amiodarone HCl (Cordarone) 200 mg PO DAILY [facility] Last Admin: 06/11/18 13:12 Dose: 200 mg Apixaban (Eliquis) 2.5 mg PO BID [facility] Last Admin: 06/11/18 11:01 Dose: Not Given Aspirin (Aspirin Chewable) 81 mg PO DAILY [facility] Last Admin: 06/11/18 13:12 Dose: 81 mg Dextrose (Dextrose 50% Inj) 0 ml IV STAT PRN; Protocol PRN Reason: Hypoglycemia Protocol Dextrose (Glutose 15) 0 gm PO ONCE PRN; Protocol PRN Reason: Hypoglycemia Protocol Glucagon (Glucagen Diagnostic Kit) 0 mg IM STAT PRN; Protocol PRN Reason: Hypoglycemia Protocol Azithromycin 500 mg/ Sodium (Chloride) 250 mls @ 250 mls/hr IVPB DAILY [facility] Last Admin: 06/11/18 13:16 Dose: 250 mls/hr Ceftriaxone Sodium (Rocephin Iv 1 Gm Duplex) 50 mls @ 100 mls/hr IVPB DAILY [facility]; Protocol Last Admin: 06/11/18 13:13 Dose: 100 mls/hr Insulin Aspart (Novolog) 0 unit SC ACHS [facility]; Protocol Last Admin: 06/11/18 12:54 Dose: Not Given Levetiracetam (Keppra) 250 mg PO BID [facility] Last Admin: 06/11/18 11:01 Dose: Not Given Methylprednisolone (Solu-Medrol) 20 mg IVP Q12 [facility] Metoprolol Tartrate (Lopressor) 25 mg PO BID [facility] Last Admin: 06/11/18 11:01 Dose: Not Given Pantoprazole Sodium (Protonix Ec Tab) 40 mg PO DAILY [facility] Last Admin: 06/11/18 13:12 Dose: 40 mg Rosuvastatin Calcium (Crestor) 20 mg PO HS [facility] Last Admin: 06/10/18 21:37 Dose: 20 mg - Labs Labs: 06/11/18 09:38 06/11/18 09:38 PT 28.8 SECONDS (9.7-12.2) H 06/07/18 09:10 INR 2.6 06/07/18 09:10 APTT 52 SECONDS (21-34) H 06/07/18 09:10 Assessment and Plan - Assessment and Plan (Free Text) Assessment: Reports palpitation on saturday at [facility] Severe LV systolic dysfunction with severe triple vessel CAD: s/p LAD and RCA drug eluting stents 04/2018 AFIB: s/p DELIA cardioversion 04/2018: EKG: NSR, RBBB, LAE, no acute ischemic changes 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 Optimize CHF therapy with change of metoprolol to coreg and add DEVIN-I cont amiodarone to maintain NSR cont HD to maintain volume normal status
--- NOTE | 2018-06-11 17:24 | PCM.HF ---
Heart Failure Core Measure - Heart Failure Ejection Fraction: Less Than 40 % DEVIN Inhibitor Prescribed: No Contraindication/Reason for not providing: ESRD Beta-Mingo Prescribed: Metoprolol Succinate Angiotensin II Receptor Mingo Prescribed: No Contraindication/Reason for not providing: ESRD AnticoagulationTherapy for Atrial Fibrillation/Atrialflutter: No Contraindication/Reason for not providing: NO HX OF A FIB Aldosterone Antagonist Prescribed: No Contraindication/Reason for not providing: ESRD Hydralazine Nitrate Prescribed: No Contraindication/Reason for not providing: ON AMIODORONE Implantable Cardioverter Defibrillator Therapy: No Contraindication/Reason for not providing: ON LIFE VEST Cardiac Resynchronization Therapy Prescribed: No Contraindication/Reason for not providing: ON LIFE VEST TRAIL - Follow up Will be discharged to: Detention Facility ([facility]) Follow Up Date (must be within 7 days from discharge): 06/16/18 Follow Up Time: 10:00
--- NOTE | 2018-06-11 17:28 | CP.PCM.PN ---
Subjective - Date & Time of Evaluation Date of Evaluation: 06/11/18 Time of Evaluation: 15:00 - Subjective Subjective: patient seen today after HD, comfortable states feels much better , denies any chest pain, sob, dizziness, palpitations vss and labs reviewed leukocytes could be from steroids a febrile blood culture- negative x 4 days Objective - Vital Signs/Intake and Output Vital Signs (last 24 hours): Temp Pulse Resp BP Pulse Ox 98.6 F 85 20 114/77 99 06/11/18 15:00 06/11/18 15:00 06/11/18 15:00 06/11/18 15:00 06/11/18 15:00 Intake and Output: 06/11/18 06/11/18 06:59 18:59 Intake Total 240 Balance 240 - Medications Medications: Current Medications Albuterol/Ipratropium (Duoneb 3 Mg/0.5 Mg (3 Ml) Ud) 3 ml INH RQ6 [facility] Last Admin: 06/11/18 13:25 Dose: 3 ml Amiodarone HCl (Cordarone) 200 mg PO DAILY [facility] Last Admin: 06/11/18 13:12 Dose: 200 mg Apixaban (Eliquis) 2.5 mg PO BID [facility] Last Admin: 06/11/18 11:01 Dose: Not Given Aspirin (Aspirin Chewable) 81 mg PO DAILY [facility] Last Admin: 06/11/18 13:12 Dose: 81 mg Dextrose (Dextrose 50% Inj) 0 ml IV STAT PRN; Protocol PRN Reason: Hypoglycemia Protocol Dextrose (Glutose 15) 0 gm PO ONCE PRN; Protocol PRN Reason: Hypoglycemia Protocol Glucagon (Glucagen Diagnostic Kit) 0 mg IM STAT PRN; Protocol PRN Reason: Hypoglycemia Protocol Azithromycin 500 mg/ Sodium (Chloride) 250 mls @ 250 mls/hr IVPB DAILY [facility] Last Admin: 06/11/18 13:16 Dose: 250 mls/hr Ceftriaxone Sodium (Rocephin Iv 1 Gm Duplex) 50 mls @ 100 mls/hr IVPB DAILY [facility]; Protocol Last Admin: 06/11/18 13:13 Dose: 100 mls/hr Insulin Aspart (Novolog) 0 unit SC ACHS [facility]; Protocol Last Admin: 06/11/18 12:54 Dose: Not Given Levetiracetam (Keppra) 250 mg PO BID [facility] Last Admin: 06/11/18 11:01 Dose: Not Given Methylprednisolone (Solu-Medrol) 20 mg IVP Q12 [facility] Metoprolol Tartrate (Lopressor) 25 mg PO BID [facility] Last Admin: 06/11/18 11:01 Dose: Not Given Pantoprazole Sodium (Protonix Ec Tab) 40 mg PO DAILY [facility] Last Admin: 06/11/18 13:12 Dose: 40 mg Rosuvastatin Calcium (Crestor) 20 mg PO HS [facility] Last Admin: 06/10/18 21:37 Dose: 20 mg - Labs Labs: 06/11/18 09:38 06/11/18 09:38 PT 28.8 SECONDS (9.7-12.2) H 06/07/18 09:10 INR 2.6 06/07/18 09:10 APTT 52 SECONDS (21-34) H 06/07/18 09:10 Assessment and Plan - Assessment and Plan (Free Text) Assessment: A/P 58 y/o female pt with hx of dementia and HTN , ESRD on HD admitted with palpitations No overnigh t events reported on monitor Patient wearing life vest . Dr. Davis- cardiology consult blood culture- negative x 4 days , a febrile urnine culture- + proteus . M started on antibiotics seen by Dr. Waller cleared for discharge to [facility] today and Dr. Waller will follow the patient at [facility] will continue antibiotics in [place]
[2018-06-11 17:35] VITALS: PULSE 71
[2018-06-11 18:28] VITALS: BP 122/71
[2018-06-11] MEDS ORDERED: MethylPREDNISolone 40 mg Vial IVP SCH (22:00)
== END 2018-06-11 18:40 | DRG 193 ==
LOC: C.ER 08:30 → C.9E 10:41 → C.6T 12:59
PROVIDERS: ADMIT Internal Medicine Nephrology; ATTEND Internal Medicine Nephrology
PROC: 5A1D70Z Performance of Urinary Filtration, Intermittent, Less than 6 Hours Per Day (ICD-10-PCS; 2018-06-09)
PROC: 5A1D70Z Performance of Urinary Filtration, Intermittent, Less than 6 Hours Per Day (ICD-10-PCS; principal; 2018-06-11)
DX: J18.9 Pneumonia, unspecified organism (principal); N18.6 End stage renal disease; I13.2 Hypertensive heart and chronic kidney disease with heart failure and with stage 5 chronic kidney disease, or end stage renal disease; I42.9 Cardiomyopathy, unspecified; I50.9 Heart failure, unspecified; E11.21 Type 2 diabetes mellitus with diabetic nephropathy; E11.22 Type 2 diabetes mellitus with diabetic chronic kidney disease; I34.0 Nonrheumatic mitral (valve) insufficiency; R07.9 Chest pain, unspecified; I27.20 Pulmonary hypertension, unspecified; G40.909 Epilepsy, unspecified, not intractable, without status epilepticus; I25.10 Atherosclerotic heart disease of native coronary artery without angina pectoris; I48.91 Unspecified atrial fibrillation; K21.9 Gastro-esophageal reflux disease without esophagitis; E78.00 Pure hypercholesterolemia, unspecified; F03.90 Unspecified dementia, unspecified severity, without behavioral disturbance, psychotic disturbance, mood disturbance, and anxiety; Z99.2 Dependence on renal dialysis; Z86.73 Personal history of transient ischemic attack (TIA), and cerebral infarction without residual deficits; Z79.01 Long term (current) use of anticoagulants; Z79.4 Long term (current) use of insulin; Z79.82 Long term (current) use of aspirin; Z95.5 Presence of coronary angioplasty implant and graft